=== PATIENT | female | born 1975 | race Native Hawaiian/Other Pacific Islander ===

== ENCOUNTER → 2021-09-11 13:23 | Outpatient (CLI) | payer OTHER, SELFPAY ==
--- NOTE | 2021-09-11 13:24 | DI.US.S_ITS ---
PROCEDURE: US PELVIC COMPLETE INDICATIONS: Excessive bleeding TECHNIQUE: Real-time scanning was performed of the pelvic organs, with image documentation. Additional endovaginal scanning was necessary due to incomplete visualization of the adnexal and endometrial structures by transabdominal scanning. COMPARISON: None. FINDINGS: Uterus: Uterus is anteverted and normal in size at 9.7 x 7 x 5.1 cm. The myometrium is homogeneous. The endometrial stripe is mildly thickened at 18 mm. There is an anechoic areas seen within the endometrial stripe measuring up to 4 mm, which potentially represents a cyst. No abnormal vascularity can be seen involving this cyst. Ovaries: The right ovary is not seen, secondary to overlying bowel. The left ovary measures 3.9 x 2.8 x 4.6 cm. Within it, there is a dominant follicle seen. A simple cyst is also seen measuring up to 3 cm, which is considered to be within physiologic limits. No adnexal masses are seen on either side. Other: No pathologic free abdominal or pelvic fluid. IMPRESSION: The endometrial stripe is mildly thickened at 18 mm. A potential 4 mm cyst is seen along the endometrial stripe itself. If it would be clinically appropriate, a followup pelvic ultrasound could be considered in 6 weeks to assure resolution/ improvement. We strive to produce accurate, complete, and clear reports of imaging services. To assist us in improving patient care, this report was composed using standard report templates and voice recognition software. Therefore, it may contain abnormal punctuation, insertions and/or omissions. Occasional wrong-word or sound-alike substitutions may occur. Though we review the report and make efforts to correct it, we do recommend that the report be read carefully in proper context to recognize any text inaccuracies. Dictated by: Ankur Maxwell M.D. on 09/11/2021 at 13:53 Approved by: Ankur Maxwell M.D. on 09/11/2021 at 13:56
== END ==
PROVIDERS: Referring Provider Obstetrics & Gynecology; Visit Provider Obstetrics & Gynecology
DX: N92.4 Excessive bleeding in the premenopausal period (principal); R93.89 Abnormal findings on diagnostic imaging of other specified body structures
CPT/HCPCS: 76830; 76856

== ENCOUNTER → 2021-11-21 15:56 | Outpatient (CLI) | payer OTHER, SELFPAY ==
[2021-11-21 17:46] LABS: COVID19 -Nasal RAPID Negative (Negative)
== END ==
PROVIDERS: PCP Family Medicine; Visit Provider Obstetrics & Gynecology
DX: Z20.822 Contact with and (suspected) exposure to COVID-19 (principal); Z01.812 Encounter for preprocedural laboratory examination
CPT/HCPCS: 87635; C9803

== ENCOUNTER 2021-11-22 08:33 | Day surgery (SDC) | payer OTHER, SELFPAY ==
[2021-11-19 07:58] VITALS: BMI 29.0
[2021-11-22] VITALS (10 sets, daily range): BP systolic 131–157; BP diastolic 74–89; PULSE 64–80; RESP 12–22; TEMP 36.1–36.6; O2SAT 92–99; BMI 29.2
--- NOTE | 2021-11-22 | PATH_ITS ---
[facility] Accession Number: [id number] . 01 Material submitted: . uterus - UTERUS, CERVIX, BILATERAL FALLOPIAN TUBES . 01 Diagnosis: Uterus, Cervix, And Bilateral Fallopian Tubes, Hysterectomy And Bilateral Salpingectomy: Adenomyosis diffusely involving myometrium. Weakly proliferative endometrium. Cervix with reactive changes. Bilateral fallopian tubes with left paratubal benign serous cystadenoma. No evidence of dysplasia, endometrioid intraepithelial neoplasia, or malignancy. [facility] 11/27/2021 1148 Local . 01 Electronically signed: . Aniyah Rivero MD, Pathologist NPI- [id number] . 01 Gross description: . The specimen is received in formalin, labeled with the patient's name and uterus, cervix, bilateral fallopian tubes, and consists of an intact uterus (165 g, 9.5 cm SI, 7.4 cm ML, 5.4 cm AP), attached cervix (3.4 x 3.4 cm) with attached left fallopian tube (4.6 x 0.8 cm) and attached right fallopian tube (5.9 x 0.9 cm), and no additional adnexa. The ectocervix is frye, smooth, and glistening. The cervical os is slit-like and measures 0.4 cm in diameter. The anterior parametrial margin is inked blue while the posterior parametrial margin is inked black. The uterine serosa is frye and smooth with no adhesions or hemorrhage identified. The endocervical canal has frye herringbone mucosa and measures 2.2 cm in length. Multiple cystic structures filled with clear gelatinous material are identified measuring up to 0.4 cm in greatest dimension. The endometrial cavity measures 3.3 cm from cornu to cornu and 5.2 cm in length with red, lush endometrium that averages 0.2 cm thick. The myometrium is pink-frye and trabecular with multiple ill-defined, frye, firm nodules located intramurally, ranging from 0.4 cm to 1.0 cm in greatest dimension, as well as multiple intramural cavities measuring up to 0.3 cm in greatest dimension. No hemorrhagic, necrosis, or additional lesions are identified. The left fallopian tube has congested smooth serosa with a single large cystic structure near the fimbriated end measuring 1.8 cm in greatest dimension, filled with clear serous fluid. Sectioning the cyst reveals thin, smooth sousa. Sectioning the tube reveals a congested stellate lumen. The right fallopian tube has congested, smooth serosa with a small amount of adipose, and no cystic structure is identified. Sectioning reveals an unremarkable stellate lumen. Eight Section Blower sections are submitted as follows: A1: Anterior cervix. A2: Anterior full-thickness section with ill-defined nodule. A3: Anterior full-thickness section to include nodule. A4: Anterior section to include cavities. A5: Posterior cervix. A6: Posterior full-thickness section to include ill-defined nodule. A7: Posterior full-thickness section to include ill-defined nodule and cavity. A8: Posterior full-thickness section to include cavity. A9: Left fallopian tube, fimbriae, and cross-sections. 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 A11: Right fallopian tube, entire fimbriae, and cross-sections. ([id number]) /[facility] 11/24/2021 1236 Local . 01 Pathologist provided ICD-10: N92.1 . 01 CPT . 044392 Specimen Comment: A courtesy copy of this report has been sent to [phone] Performed at: 01 [facility] [address] [place] [address], [place], [place] [id number] MD Stepan Babb MD Phone: [phone]
[2021-11-22] MEDS: LACTATED RINGERS 1,000 ML 42 ML IV (09:34)
--- NOTE | 2021-11-22 09:48 | PM.PREOP ---
Pre-operative Note COVID-19 COVID-19 status: Negative Result date/Date tested (Pos, Neg/Pending): 11/21/21 Criteria for continued procedure: Non-surgical alternatives not available or appropriate per current SOC Interval Note History & Physical reviewed/Exam performed by Physician: Yes Changes to H&P: No
[2021-11-22] MEDS: CEFAZOLIN 2 GM/100 ML PREMIX 100 ML IV (10:15)
[2021-11-22] MEDS: ACETAMINOPHEN IV 1,000 MG/100 ML VIAL 400 MG IV (10:30)
--- NOTE | 2021-11-22 10:50 | SUR.OPER ---
Lithotomy on padded OR bed. [place] Pad Positioner under torso. Head on pillow, arms padded and tucked at sides. Legs secured in padded yellow fins stirrups.
[2021-11-22] MEDS: BUPIVACAINE 0.5% W/ EPI (PF) 30 ML VIAL INJ (11:13)
--- NOTE | 2021-11-22 12:28 | PM.GYNOP.1 ---
Operative Date/Time/Diagnoses Date of procedure: 11/22/21 Time of procedure: 10:50 Pre-op diagnosis: Menometrorrhagia Dysmenorrhea Post-op diagnosis: same Procedure & Clinicians Procedure: Procedures Operation Date: 11/22/21 09:45 Actual Procedure Side Surgeon p Laparoscopic Total Hysterectomy w/ bilateral salpingectomy Pascual Haque MD Indications: Rasheeda is a 46-year-old , LMP 10/19/2021 who presented earlier this year with a 2-3 year history of progressively chaotic menses.? These have been associated with the development of vasomotor symptoms, night sweats, and brain fog.? In addition the patient has had intermenstrual spotting/bleeding.? She had a pelvic ultrasound performed January 2020 which showed a normal-sized uterus with a 13 mm endometrial stripe.? Endometrial biopsy performed 02/22/2020 shows secretory endometrium with no hyperplasia or neoplasia identified.? A more recent pelvic ultrasound at [facility] on 09/11/2021 shows: FINDINGS:? ?? Uterus:? Uterus is anteverted and normal in size at 9.7 x 7 x 5.1 cm. The myometrium is homogeneous. ? The endometrial stripe is mildly thickened at 18 mm.? There is an anechoic areas seen within the endometrial stripe measuring up to 4 mm, which potentially represents a cyst.? No abnormal vascularity can be seen involving this cyst. ? Ovaries:? The right ovary is not seen, secondary to overlying bowel. ? The left ovary measures 3.9 x 2.8 x 4.6 cm. Within it, there is a dominant follicle seen. ?A simple cyst is also seen measuring up to 3 cm, which is considered to be within physiologic limits. ? No adnexal masses are seen on either side.? ? Other:? No pathologic free abdominal or pelvic fluid. ? ? IMPRESSION:? The endometrial stripe is mildly thickened at 18 mm. ? A potential 4 mm cyst is seen along the endometrial stripe itself. ? If it would be clinically appropriate, a followup pelvic ultrasound could be considered in 6 weeks to assure resolution/ improvement. Patient has been counseled previously regarding options including insertion of a Mirena IUD which she declines, hysteroscopy with endometrial ablation which she also declines, and strongly desires to proceed with hysterectomy.? Her most recent Pap smear was in 2019 at [facility] and was normal. Patient counseled at length regarding alternatives, risks, benefits, and potential complications associated with total laparoscopic hysterectomy with bilateral salpingectomy.? With full understanding of the above, the patient desires to move forward with total laparoscopic hysterectomy with bilateral salpingectomy and she presents today for her scheduled surgery.. Surgeon: Pascual Haque Dimension [employer]arry Supervisor: Danni Clifford Anesthesia Type: General Operative Notes Findings: Uterus is upper limits of normal-size but otherwise unremarkable. There were no abnormalities in either the anterior posterior cul-de-sac. Both ovaries and tubes appeared to be normal. The appendix is normal to laparoscopic visualization as is the upper abdomen. Closure Type: primary Specimen(s): left tube, right tube and uterus Applied: catheter Estimated blood loss (mL): 100 Blood products transfused: none Procedure in detail: With the patient in modified dorsal lithotomy position preparations were made by prepping and draping the patient in usual manner for vaginal surgery and insertion of Bhandari catheter. A pre-surgical time-out was then taken in accordance with [facility] policy. A bivalve speculum was then placed in the vagina and the cervix visualized. The anterior lip of the cervix was then grasped with a single-tooth tenaculum. The uterus was sounded to 9 cm, the endocervical canal dilated slightly, and a VCare uterine manipulator with a large colpotomy cup was placed. The umbilicus was then infiltrated with 0.5% Marcaine with epinephrine. A 1 cm umbilical incision was made transversely and a Veress needle was used to insufflate the abdominal cavity with carbon dioxide. Once the abdomen was appropriately insufflated, a 5 mm trocar and sleeve were then placed through the umbilical incision. The scope was placed through the trocar and the initial assessment of the intra-abdominal contents carried out. A 2nd and 3rd 5 mm port was then placed 1st in the right mid quadrant from then the left mid quadrant by infiltration of the skin and subcutaneous tissues, a 1 cm transverse incision and insertion of the 5 mm bladeless port. Using a 3 puncture technique, the abdomen and pelvis were inspected laparoscopy and photographically documented. Uterus is mobilized with the VCare manipulator and attention turned to the left adnexa. The distal tube was then grasped and the fimbria varicose divided after coagulation with the PowerSeal device. The dissection was then carried out toward the cornua and the fallopian tube amputated. The tube was removed through a 5 mm port and dissection was then carried down using the PowerSeal device so as to divide the utero-ovarian ligament and the round ligament with blunt and sharp dissection of the broad down to the level of the uterine artery. The uterine artery was then skeletonized after development of a bladder flap, coagulated, and divided. Once hemostasis was assured on the left side attention was turned to the right and the tube, utero-ovarian ligament, round ligament, and broad ligament were dissected in a fashion exactly the same as it had been on the left. The right uterine artery was then visualized after skeletonization and coagulated and divided. The uterus was seen to jackie after coagulation of both your arteries and the cup was identified through the vaginal muscularis at its insertion with the body of the cervix. Circumferential excision of the vaginal cup was accomplished without difficulty using monopolar current and the uterus mobilized. The uterus was then removed through the vagina and the vaginal cuff closed [id number] with a series of 0 Vicryl [id number] stitches. Hemostasis was excellent, the abdomen was re-insufflated, and the pelvis inspected laparoscopically. The pelvis was inspected for any abnormality or bleeding, and the ureters were each seen to be peristalsing freely. With complete hemostasis assured, the pneumoperitoneum was vented and the ports removed. All of the 5 mm ports were then closed with 4-0 Monocryl on the skin using inverted interrupted sutures. Skin glue was placed and after the glue was dried, an appropriate dressing was applied. The case was then terminated, the patient awakened, and then transferred to PACU after having tolerated the procedure well. Complications: none Post-operative Condition: stable Disposition: PACU Plan for aftercare: Recovery in ambulatory surgery in discharge home later today if pain is under control and she is tolerating oral intake well.
[2021-11-22] MEDS: ONDANSETRON 4 MG/2 ML INJ IV (12:54)
[2021-11-22] MEDS: METOCLOPRAMIDE 10 MG/2 ML INJ IV (13:10)
[2021-11-22] MEDS: LORazepam 2 MG/ML INJ 0.25 MG IV (13:19)
--- NOTE | 2021-11-22 14:05 | SUR.PHASEI ---
Spoke with Dr Haque. Discussed patient plan for DC to day if nausea controlled, able to void and be steady on feet. Plan to keep patient in OPD and Dr Haque will see later today to determine when/if patient to DC to home and transfer to floor.
--- NOTE | 2021-11-22 14:07 | SUR.PHASEI ---
1315 MD Ziegler at bedside. Pt nauseated and MD Ziegler ordered IV Ativan to be given per order and a scopolamine patch if needed.
[2021-11-22] MEDS: SCOPOLAMINE 1 PATCH TOP (16:04)
--- NOTE | 2021-11-22 16:40 | SUR.PHASEII ---
Patient ambulated to bathroom and voided without difficulty. Tolerated fluids after placing scolpolamine patch to back of left ear. Provided written and discharge instructions to patient. Patient stated understanding. Discharged patient by wheelchair to private vehicle in stable condition. See flowsheet for assessment details.
== END 2021-11-22 16:32 | disposition home or self-care (01) ==
PROVIDERS: PCP Family Medicine; Referring Provider Obstetrics & Gynecology; Visit Provider Obstetrics & Gynecology
PROC: 0UT94ZZ Resection of Uterus, Percutaneous Endoscopic Approach (ICD-10-PCS; CPT 58571; principal; 2021-11-22 09:45)
DX: N92.1 Excessive and frequent menstruation with irregular cycle (principal); N94.6 Dysmenorrhea, unspecified; I10 Essential (primary) hypertension; E03.9 Hypothyroidism, unspecified; E05.00 Thyrotoxicosis with diffuse goiter without thyrotoxic crisis or storm; N83.292 Other ovarian cyst, left side; D28.2 Benign neoplasm of uterine tubes and ligaments; N80.03 Adenomyosis of the uterus
CPT/HCPCS: 58571; 81025; J0131; J0690; J1100; J1170; J2060; J2250; J2405; J2704; J2765; J3010

== ENCOUNTER → 2022-03-30 10:01 | Outpatient (CLI) | payer OTHER, SELFPAY ==
--- NOTE | 2022-03-30 10:02 | DI.MG.S_ITS ---
BILATERAL DIGITAL SCREENING MAMMOGRAM 3D/2D WITH CAD: 03/30/2022 CLINICAL: Baseline exam. Routine screening. No prior exams were available for comparison. Both breasts are heterogeneously dense, which may obscure small masses (category c / 51-75% glandular tissue). Current study was also evaluated with a Computer Aided Detection (CAD) system. No significant masses, calcifications, or other findings are seen in either breast. IMPRESSION: NEGATIVE There is no mammographic evidence of malignancy. A 1 year screening mammogram is recommended. Based on the Tyrer Cuzick model (a risk assessment model) the patient's lifetime risk is 7.5% and her 10 year risk is 1.5%. According to the ACR, ACS, and NCCN guidelines, an annual breast MRI exam along with mammogram is recommended if the patient's lifetime risk is 20% or greater. This exam was interpreted at Station ID: [id number]. NOTE: For mammograms, a report in lay terms will be sent to the patient. Approximately 15% of breast malignancies will not be visualized mammographically. In the management of a palpable breast mass, a negative mammogram must not discourage biopsy of a clinically suspicious lesion. Electronically Signed By: Caty lala/errol:04/01/2022 09:25:41 letter sent: Normal Exam ACR BI-RADS Category 1: Negative [id number]
== END ==
PROVIDERS: PCP Family Medicine; Referring Provider Family Medicine; Visit Provider Family Medicine
DX: Z12.31 Encounter for screening mammogram for malignant neoplasm of breast (principal)
CPT/HCPCS: 77063; 77067

== ENCOUNTER → 2024-04-19 16:42 | Outpatient (CLI) | payer OTHER, SELFPAY ==
--- NOTE | 2024-04-19 16:43 | DI.MG.S_ITS ---
MM screening mammo BI: 04/19/2024. BI-RADS: 1 CLINICAL: 48-year old female for bilateral screening mammogram. Tyrer-Cuzick lifetime risk of 6.7%. No personal or first-degree family history of breast cancer. PRIOR EXAMS 03/30/2022. MAMMOGRAPHY TECHNIQUE: 2D and 3D (tomosynthesis) digital mammographic views obtained, with additional images as needed for full coverage. Current study was also evaluated with a Computer Aided Detection (CAD) system. DENSITY C. The breasts are heterogeneously dense, which may obscure small masses. MAMMOGRAPHY FINDINGS Bilateral: No suspicious mass, asymmetry, microcalcification, or other abnormality seen. IMPRESSION: * No evidence of malignancy. RECOMMENDATIONS Bilateral * Annual screening mammography. OVERALL ASSESSMENT CATEGORY BI-RADS-1: Negative. The [employer] recommends annual screening mammography beginning at age 40 for women with average risk of breast cancer. ELECTRONICALLY SIGNED: Giovanni Ulrich M.D. on 04/20/2024 at 09:50:47 AM Interpreting Station ID: [id number]
== END ==
LOC: MAMMO 16:42
PROVIDERS: PCP Family Medicine; Referring Provider Family Medicine; Visit Provider Family Medicine
DX: Z12.31 Encounter for screening mammogram for malignant neoplasm of breast (principal); R92.333 Mammographic heterogeneous density, bilateral breasts
CPT/HCPCS: 77063; 77067